=== PATIENT | male | born 1985 | race Caucasian/White ===

== ENCOUNTER 2016-06-20 22:54 | Emergency (ER) | payer OTHER ==
[2016-06-20] MEDS ORDERED: MEPERIDINE 50 MG/ML ONE (23:28)
[2016-06-20] MEDS ORDERED: FAMOTIDINE 20 MG INJ ONE (23:28)
[2016-06-20] MEDS ORDERED: ONDANSETRON 4 MG VIAL ONE (23:28)
[2016-06-20] MEDS ORDERED: SODIUM CHLORIDE 0.9% 1,000 ML ONE (23:29)
[2016-06-21] MEDS ORDERED: DIPHENHYDRAMINE 50 MG/ML VIAL ONE (00:29)
[2016-06-21] MEDS ORDERED: PROMETHAZINE 25 MG/ML VIAL ONE (00:29)
[2016-06-21] MEDS ORDERED: SODIUM CHLORIDE 0.9% 1,000 ML ONE (00:29)
== END 2016-06-21 01:47 | disposition home or self-care (01) ==
LOC: ER 22:54
DX: R10.84 Generalized abdominal pain (principal); R19.7 Diarrhea, unspecified
CPT/HCPCS: 36415; 76705; 80053; 81003; 83690; 85025; 87045; 87046; 87493; 96361; 96374; 96375; 96376